=== PATIENT | female | born 1950 | race Hispanic/Latino ===

== ENCOUNTER 2021-04-06 09:25 | Outpatient (CLI) | payer MEDICARE | END 2021-04-06 09:26 | disposition home or self-care (01) | LOC: CSHMAMMO 09:25 | PROVIDERS: ATTEND Family Medicine | DX: Z12.31 Encounter for screening mammogram for malignant neoplasm of breast (principal) | CPT/HCPCS: 77063; 77067 ==

== ENCOUNTER 2022-04-07 08:25 | Outpatient (CLI) | payer MEDICARE | END 2022-04-07 08:26 | disposition home or self-care (01) | LOC: CSHMAMMO 08:25 | PROVIDERS: ATTEND Family Medicine | DX: Z12.31 Encounter for screening mammogram for malignant neoplasm of breast (principal); Z98.890 Other specified postprocedural states; Z80.3 Family history of malignant neoplasm of breast | CPT/HCPCS: 77063; 77067 ==

== ENCOUNTER 2022-12-09 06:35 | Day surgery (SDC) | payer OTHER ==
[2022-12-07 15:23] VITALS: BMI 26.4
[2022-12-09] MEDS ORDERED: Lidocaine 1% PF 5 ML VIAL ONE (09:01)
[2022-12-09] MEDS ORDERED: PROPOFOL 40 ML ONE (09:01)
== END 2022-12-09 10:35 | disposition home or self-care (01) ==
LOC: CSHSDC 06:35
PROVIDERS: ATTEND Surgery
PROC: 0DDL8ZX Extraction of Transverse Colon, Via Natural or Artificial Opening Endoscopic, Diagnostic (ICD-10-PCS; principal; 2022-12-09)
DX: K57.31 Diverticulosis of large intestine without perforation or abscess with bleeding (principal); D12.3 Benign neoplasm of transverse colon; K64.0 First degree hemorrhoids; I12.9 Hypertensive chronic kidney disease with stage 1 through stage 4 chronic kidney disease, or unspecified chronic kidney disease; E11.22 Type 2 diabetes mellitus with diabetic chronic kidney disease; N18.2 Chronic kidney disease, stage 2 (mild); M81.0 Age-related osteoporosis without current pathological fracture; Z79.82 Long term (current) use of aspirin; Z79.899 Other long term (current) drug therapy; Z79.84 Long term (current) use of oral hypoglycemic drugs; Z91.013 Allergy to seafood
CPT/HCPCS: 88305; J2704

== ENCOUNTER 2024-11-05 09:43 | Outpatient (CLI) | payer OTHER | END 2024-11-05 09:44 | disposition home or self-care (01) | LOC: CSHMAMMO 09:43 | PROVIDERS: ATTEND Student in an Organized Health Care Education/Training Program | DX: Z78.0 Asymptomatic menopausal state (principal); M81.0 Age-related osteoporosis without current pathological fracture; M85.851 Other specified disorders of bone density and structure, right thigh; M85.852 Other specified disorders of bone density and structure, left thigh | CPT/HCPCS: 77080 ==